=== PATIENT | female | born 1935 | race Caucasian/White ===

== ENCOUNTER 2016-11-02 16:58 | Emergency (ER) | payer MEDICARE, BC ==
[2016-11-02] MEDS ORDERED: TETANUS/DIPHTHERIA/PERTUSSIS 0.5 ML SYRINGE IM ONE ×2 (17:09→17:26)
[2016-11-02] MEDS ORDERED: CEPHALEXIN 250 MG Prepack 8 PO ONE ×2 (17:09→17:26)
--- NOTE | 2016-11-02 17:23 | ED Physician Documentation ---
PD HPI LOWER EXT INJURY - Stated complaint Stated Complaint: R LEG LAC - Chief complaint Chief Complaint: Wound - History obtained from History obtained from: Patient, Family () - History of Present Illness PD HPI LOW EXT INJURY LOCATION: Right, Lower leg (Skin tear from running into a piece of furniture about an hour ago, tetanus unknown.) Review of Systems Constitutional: denies: Fever, Chills GI: reports: Reviewed and negative : reports: Reviewed and negative PD PAST MEDICAL HISTORY - Past Medical History Past Medical History: Yes Cardiovascular: Hypertension, Atrial fibrillation Respiratory: None Neuro: Other Endocrine/Autoimmune: None GI: None [employer]: None : None Derm: Other - Past Surgical History Ortho: Hip replacement, Knee replacement, Other - Present Medications Home Medications: Ambulatory Orders Medication Instructions Recorded Confirmed Cephalexin [Keflex] 500 mg PO QID #20 capsule 11/02/16 Donepezil HCl [Aricept] 11/02/16 Hydrochlorothiazide 12.5 mg PO 11/02/16 Lisinopril 10 mg PO 11/02/16 Metoprolol Tartrate [Lopressor] 50 mg PO BID 11/02/16 11/02/16 Warfarin [Coumadin] 2.5 mg PO 1400 11/02/16 11/02/16 - Allergies Allergies/Adverse Reactions: Allergies Allergy/AdvReac Type Severity Reaction Status Date / Time ertapenem Allergy Rash Verified 11/02/16 17:05 - Social History Does the pt smoke?: No Smoking Status: Never smoker Does the pt drink ETOH?: Yes Does the pt have substance abuse?: No - Immunizations Immunizations are current?: No Immunizations: TDAP >10years/unknown - POLST Patient has POLST: No PD ED PE NORMAL - Vitals Vital signs reviewed: Yes - General General: No acute distress, Well developed/nourished - Extremities Extremities: Other (3 cm shallow V-shaped skin tear on the anterolateral surface of the right lower leg. She does have chronic venous stasis changes as well as chronic cellulitis and some edema.) - Psych Psych: Normal mood, Normal affect Results - Vitals Vitals: Vital Signs - 24 hr 11/02/16 11/02/16 17:07 17:31 Temperature 36.1 C L Heart Rate 73 82 Respiratory 18 16 Rate Blood Pressure 160/112 H 198/113 H O2 Saturation 98 95 Oxygen O2 Source Room air Procedures - Laceration (location) Right leg Length in cm: 3 Wound type: Curved, Flap, Superficial Wound Preparation: Irrigated copiously NS Skin layer closure: Steri strips Other: Patient tolerated well, No complications, Neurovascular intact, Tetanus booster given PD MEDICAL DECISION MAKING - ED course ED course: Given that she has what appears to be chronic cellulitis and venous stasis changes on that leg it seems reasonable to put her on a few days worth of prophylactic antibiotics. Departure - Departure Disposition: 01 Home, Self Care Clinical Impression: Skin tear Condition: Good Record reviewed to determine appropriate education?: Yes Instructions: ED Laceration Ext Sutr Stap Tape Prescriptions: Cephalexin [Keflex] 500 mg PO QID #20 capsule Comments: Call your doctor to arrange a follow-up appointment, make the next available appointment. In the interim, return anytime if worse or if new symptoms develop. Your blood pressure was elevated today on check into the emergency department. This does not mean that you have hypertension, it is a common phenomenon to come to the emergency department and have elevated blood pressure. I recommend that she see her primary care physician within the week to have it rechecked when you are feeling better. Often times when you start antibiotics while you are taking anticoagulants such as Coumadin or warfarin, your INR will go up. You need to have your INR checked frequently while on the antibiotics. Have it checked in 3 days, again in 6 days, and at least weekly while you are on antibiotics. Dose adjustments of your anticoagulants may be necessary. Discharge Date/Time: 11/02/16 17:38
[2016-11-02 17:32] VITALS: BP 198/113
== END 2016-11-02 17:38 | disposition home or self-care (01) ==
LOC: ED 16:58
DX: S81.811A Laceration without foreign body, right lower leg, initial encounter (principal); W22.03XA Walked into furniture, initial encounter; Y93.02 Activity, running; I10 Essential (primary) hypertension; Z23 Encounter for immunization; Z96.649 Presence of unspecified artificial hip joint; Z96.659 Presence of unspecified artificial knee joint; Z79.01 Long term (current) use of anticoagulants
CPT/HCPCS: 12002; 90471; 99283

== ENCOUNTER 2017-01-12 21:33 | Outpatient (CLI) | payer MEDICARE, BC | END 2017-01-12 21:34 | disposition short-term general hospital (02) | LOC: EMS 21:33 | PROVIDERS: ATTEND Surgery | DX: R46.4 Slowness and poor responsiveness (principal); R53.83 Other fatigue | CPT/HCPCS: A0425; A0427 ==

== ENCOUNTER 2019-06-04 13:58 | Outpatient (CLI) | payer MEDICARE, BC | END 2019-06-04 13:59 | disposition EMS.NT | LOC: EMS 13:58 | PROVIDERS: ATTEND Surgery | DX: S09.90XA Unspecified injury of head, initial encounter (principal); W19.XXXA Unspecified fall, initial encounter; Z91.81 History of falling ==

== ENCOUNTER 2021-10-09 10:28 | Outpatient (CLI) | payer MEDICARE, BC | END 2021-10-09 10:29 | disposition EMS.NT | LOC: EMS 10:28 | DX: S81.012A Laceration without foreign body, left knee, initial encounter (principal); W18.39XA Other fall on same level, initial encounter; Y92.008 Other place in unspecified non-institutional (private) residence as the place of occurrence of the external cause ==